=== PATIENT | female | born 1990 | race African-American/Black ===

== ENCOUNTER 2017-01-18 09:12 | Emergency (ER) | payer OTHER ==
[~2017-01-18] VITALS: Ht 154.9 cm; Wt 89.4 kg
[~2017-01-18 09:12] MED LIST: NOHOMEMEDICATIONS
[2017-01-18 09:17] VITALS: BP 135/81
[2017-01-18] MEDS ORDERED: NEOMYCIN-POLY-7.5 ML OP (10:00)
== END 2017-01-18 10:06 | disposition home or self-care (01) ==
LOC: ER 09:12
DX: H10.9 Unspecified conjunctivitis (principal)